=== PATIENT | male | born 1965 | race Caucasian/White ===

== ENCOUNTER 2017-01-23 16:00 | Day surgery (SDC) | payer OTHER ==
[2017-01-22 15:49] VITALS: BMI 24.2
[~2017-01-23] VITALS: Ht 167.6 cm; Wt 67.0 kg
[2017-01-23] VITALS (16 sets, daily range): BP systolic 115–140; BP diastolic 65–81; PULSE 70–98; RESP 11–22; Ht 167.6 cm; Wt 67.0 kg
--- NOTE | 2017-01-23 16:39 | RADRPT ---
PROCEDURE: XR Chest. CLINICAL INDICATION: Preoperative . TECHNIQUE: Single frontal chest x-ray. COMPARISON: None. FINDINGS: The lungs are clear of acute infiltrates, edema, effusions, or masses.. The cardiomediastinal silho uette is unremarkable. The osseous structures are intact. IMPRESSION: No acute cardiopulmonary disease. RPTAT: GG .Mendez Mei MD, MD Date Time Electronically viewed and signed by .Mendez Mei MD, on 01/23/2017 16:38 .L/
--- NOTE | 2017-01-23 16:54 | HPN ---
Date/Time of Note Date/Time of Note DATE: 01/23/17 TIME: 16:54 Interval H&P Admission Note Pt. seen H&P reviewed: No system changes ZAHRA HERNANDEZ Jan 23, 2017 16:54
[2017-01-23] MEDS ORDERED: LIDOCAINE 1% (STERILE-PAK) 30 ML INJ ONE (17:23)
[2017-01-23] MEDS ORDERED: POLYMYXIN/BACITRACIN 1L IRRIG ONE (17:23)
[2017-01-23] MEDS ORDERED: BUPIVACAINE 0.25% (MPF) 10 ML 10 ML VIAL ONE (17:23)
[2017-01-23] MEDS ORDERED: PHENYLephrine (100 MCG/ML) 5ML SYG ONE (17:58)
[2017-01-23] MEDS ORDERED: FENTAnyl 50 MCG/ML VIAL ONE (18:01)
[2017-01-23] MEDS ORDERED: LIDOCAINE 2% (SDV) 5 ML INJ ONE (18:22)
[2017-01-23] MEDS ORDERED: ONDANSETRON 4 MG INJ ONE (18:23)
[2017-01-23] MEDS ORDERED: PROPOFOL 20 ML ONE (18:23)
[2017-01-23] MEDS ORDERED: DEXAMETHASONE 4 MG/ML 1 ML INJ ONE (18:23)
--- NOTE | 2017-01-23 19:13 | OPPN ---
Date/Time of Note Date/Time of Note DATE: 01/23/17 TIME: 19:13 Operative Report Preoperative Diagnosis left hand and ring finger Dupuytren's contracture Postoperative Diagnosis left hand and ring finger Dupuytren's contracture Operation/Procedure Performed open fasciectomy left hand and ring finger Dupuytren's contracture Surgeon see signature line offset press assistant none Anesthesia: general Estimated blood loss: 0 - 10 ml's Transfusion Required none Specimen none Grafts/Implants none Complications none ZAHRA HERNANDEZ Jan 23, 2017 19:13
[2017-01-23] MEDS ORDERED: HYDROCODONE/APAP (5/325) TAB PO PRN (20:00)
[2017-01-23] MEDS ORDERED: HYDROmorphONE 1 MG/ML SYG IV STA (20:04)
[2017-01-23] MEDS ORDERED: HYDROmorphONE (0.2 MG/ML) 10ML SYG IV ONE (20:06)
[2017-01-23] MEDS ORDERED: METOCLOPRAMIDE 10 MG INJ ONE (20:06)
[2017-01-23] MEDS ORDERED: METOCLOPRAMIDE 10 MG INJ IV ONE (20:30)
--- NOTE | 2017-01-24 15:08 | OPR ---
DATE OF OPERATION: 01/23/2017 SURGEON: Maurice Hill MD ANESTHESIA: General. PREOPERATIVE DIAGNOSES: 1. Left hand Dupuytren's contracture. 2. 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 POSTOPERATIVE DIAGNOSES: 1. Left hand Dupuytren's contracture. 2. 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 PROCEDURE.: 1. Left hand open fasciectomy for Dupuytren's contracture. 2. Left ring finger open fasciectomy for excision of spiral cord for Dupuytren's contracture. OPERATIVE FINDINGS AT SURGERY: Pretendinous and spiral cord at the left hand and ring finger. INDICATION: This is a 51-year-old male with longstanding left hand Dupuytren's contracture. Worsening with time and he was flexing to 40 degrees at the MP joint and 70 degrees at the PIPJ, with inability to extend beyond that point. The patient elected to proceed with surgical intervention. Understanding the risks, benefits. OPERATIVE PROCEDURE: The patient was seen up in the preoperative area. All further questions were answered. Again, he gave informed consent understanding risks, benefits. He was taken to the operative suite and paced in supine position. He was placed under general anesthesia and tourniquet placed on left upper extremity. Ancef 2 g IV given and left upper extremity was prepped with ChloraPrep stick and draped usual sterile fashion. Esmarch bandage was used to exsanguinate the extremity and tourniquet inflated to 250 mmHg. A Cris zigzag-type incision longitudinally along the palm and into the ring finger, beyond the PIPJ was utilized with sharp dissection carried down through skin and subcutaneous tissue. The pretendinous cord was found proximally and the deep dermal layer was carefully peeled off of the underlying pretendinous cord. The cord was isolated circumferentially to the level of the MP joint. The cord was excised and the MP joint. I was able to hyperextend. The PIPJ had persistent flexion deformity and the spiral cord was identified and the neurovascular bundles were identified and protected. The spinal cord was also excised, and the PIPJ was fully extended. Tourniquet was deflated after 39 minutes, and the skin flaps were pink, warm, well-perfused, as was the digit into full extension. The wound was copiously irrigated. Skin closed with #5-0 nylon. Xeroform placed over the wounds followed by sterile gauze, Webril, and a short-arm volar splint to the finger tips, with the fingers in extension. The fingers remained pink, warm, well-perfused with the splint placed. The patient was awakened from anesthesia, taken to postoperative suite in stable condition and tolerated the procedure well without complication. Specimens none. Estimated blood loss 5 mL. Sponge and needle counts correct. Tourniquet time 39 minutes. Condition on discharge is stable. Dictated By: Maurice Hill MD /[email or web address] /Document#: [id number]
== END 2017-01-23 21:10 | disposition home or self-care (01) ==
LOC: SDS 16:00
PROVIDERS: ATTEND Orthopaedic Surgery Hand Surgery
DX: M72.0 Palmar fascial fibromatosis [Dupuytren] (principal); M24.542 Contracture, left hand
CPT/HCPCS: 26121; 71010; 88304; J1100; J1170; J2370; J2405; J2765; J3010; Z7512; Z7610

== ENCOUNTER 2017-03-01 05:40 | Day surgery (SDC) | payer OTHER ==
[~2017-03-01] VITALS: Ht 167.6 cm; Wt 61.7 kg
[2017-03-01] VITALS (13 sets, daily range): BP systolic 117–138; BP diastolic 60–89; PULSE 68–99; RESP 7–18; Ht 167.6 cm; Wt 61.7 kg
[2017-03-01] MEDS ORDERED: SOD CHLORIDE 0.9% 1,000 ML IV SCH (06:00)
[2017-03-01] MEDS ORDERED: CEFAZOLIN 2 GM/50 ML (PMX) 50 ML IVPB SCH (06:00)
[2017-03-01] MEDS ORDERED: POLYMYXIN/BACITRACIN 1L IRRIG ONE (07:44)
[2017-03-01] MEDS ORDERED: BUPIVACAINE 0.25% (MPF) 30 ML INJ ONE (07:44)
[2017-03-01] MEDS ORDERED: FENTAnyl 50 MCG/ML VIAL ONE (08:14)
[2017-03-01] MEDS ORDERED: MIDAZOLAM 1 MG/ML 2 ML INJ ONE (08:14)
[2017-03-01] MEDS ORDERED: LIDOCAINE 2% (SDV) 5 ML INJ ONE (08:23)
[2017-03-01] MEDS ORDERED: DEXAMETHASONE 4 MG/ML 1 ML INJ ONE (08:23)
[2017-03-01] MEDS ORDERED: CEFAZOLIN 1 GM INJ ONE (08:23)
[2017-03-01] MEDS ORDERED: SUCCINYLCHOLINE CHLORIDE 100 MG/5 ML SYG IV ONE (08:23)
[2017-03-01] MEDS ORDERED: PROPOFOL 20 ML ONE (08:23)
[2017-03-01] MEDS ORDERED: ONDANSETRON 4 MG INJ ONE (08:23)
[2017-03-01] MEDS ORDERED: FAMOTIDINE 20 MG INJ ONE (08:23)
[2017-03-01] MEDS ORDERED: ROCURONIUM 50 MG INJ ONE (08:23)
[2017-03-01] MEDS ORDERED: PHENYLephrine (100 MCG/ML) 5ML SYG ONE (08:24)
[2017-03-01] MEDS ORDERED: PROCHLORPERAZINE 10 MG INJ IV PRN (08:30)
[2017-03-01] MEDS ORDERED: FENTAnyl 50 MCG/ML VIAL IV PRN (08:30)
[2017-03-01] MEDS ORDERED: ONDANSETRON 4 MG INJ IV PRN (08:30)
[2017-03-01] MEDS ORDERED: MEPERIDINE 25 MG INJ IV PRN (08:30)
[2017-03-01] MEDS ORDERED: OXYCODONE/ACETAMINOPHEN (5/325) TAB PO PRN ×2 (08:30)
[2017-03-01] MEDS ORDERED: DIPHENHYDRAMINE 50 MG INJ IV PRN (08:30)
[2017-03-01] MEDS ORDERED: HYDROmorphONE (0.2 MG/ML) 10ML SYG IV PRN (08:30)
[2017-03-01] MEDS ORDERED: HYDROmorphONE 2 MG/ML SYG ONE (08:50)
[2017-03-01] MEDS ORDERED: GLYCOPYRROLATE 0.4 MG INJ ONE (09:29)
[2017-03-01] MEDS ORDERED: NEOSTIGMINE 3 MG/3 ML SYRINGE ONE (09:29)
[2017-03-01] MEDS ORDERED: KETOROLAC 30 MG INJ ONE (09:39)
--- NOTE | 2017-03-01 09:42 | OPR ---
Date/Time of Note Date/Time of Note DATE: 03/01/17 TIME: 09:34 Operative Report Procedure Date: Mar 01, 2017 Preoperative Diagnosis recurrent bilateral inguinal hernias Postoperative Diagnosis recurrent bilateral inguinal hernias infected left groin mesh Operation/Procedure Performed 1. laparoscopic bilateral inguinal hernias 2. bard's 15 x 15 cm mesh implantation in the abdomen 3. incision and drainage of left groin abscess 4. wound culture of left groin abscess 5. removal of left groin foreign body 6. therapeutic injection of subcutaneous local anesthesia Surgeon see signature line Pest Control Applicator none Anesthesia Type: general Estimated Blood Loss: 0 - 10 ml's Transfusion none Specimen left groin wound culture left groin foreign body possible old mesh Grafts/Implants none Complications none Indications This is a 51-year-old male who has had prior inguinal hernia repair. He requests surgical repair due to recurrence. Patient taken to the OR for laparoscopic bilateral inguinal hernia repair. Risks alternatives benefits and percent were discussed the patient. Patient's best understanding consents to the operation. Procedure Description Patient taken to the OR prepped and draped in usual sterile fashion. Surgical timeout was performed. IV antibiotics were given. Infraumbilical transverse incision is made with a 15 blade. Dissection cautery was carried onto the fascia and which was grasped with [place]'s. The fascia was divided with curved Vanegas scissors. 0 Vicryl U stitch was placed into the fascia. Blueness on trocar is introduced pneumoperitoneum is established. Left periumbilical 5 mm ports were placed 2. Right periumbilical 5 ports are placed 2. Upon initial inspection there is 2 small bilateral inguinal hernias. Peritoneal flaps are created on the left side this is taken down to visualize the inferior epigastric artery and this is followed down to allow visualization of the pubic tubercle. The cord structures identified and inguinal hernias laparoscopically reduced. Mesh was implanted with 15 x 15 cm Bard soft mesh which is secured in place by first securing the medial portion of the mesh with secure strap. Steri -Strips were placed additionally along the superior and anterior abdominal wall to secure the mesh placement. The peritoneal flap was then re-tacked to the anterior abdominal wall to cover the mesh with secure strap. There is good hemostasis. Attention was then paid to the right side. Peritoneal flaps were created with lap scopic harmonic alessandra. The flap was taken down from the inferior epigastric and blunt dissection allowed visualization of the pubic tubercle. A small indirect hernia was identified and this was reduced laparoscopically. Large 15 x 15 cm mesh was cut to fashion with with 2 straps. This was placed around the cord structures to allow the current recreation of the inguinal ring. The mesh was secured in place by initial tacking to the pubic tubercle medially and superiorly along the anterior abdominal wall. There is good hemostasis. The peritoneal flap was then replaced back into place with secure strap. Additional finding during the operation was that there was still a groin bulge in the left side more superior and lateral to the incision site. Small incision was made is an open incision in this area was explored. There was gross pus pocket there. This area was irrigated thoroughly after a wound culture was sent. Additionally foreign body material which looked like old mesh was also excised in part however some of the mesh was completely incorporated to tissues and the decision was made that further extraction of additional old mesh would cause more destruction of the inherent tissues and cause more bleeding. Is much foreign body and old mesh was resected as possible. The wound was then closed with skin karyna. Therapeutic subcutaneous dressing was applied to all incision sites after all incisions were closed with skin karyna. Dry dressings were applied. Basia FISH Mar 01, 2017 09:42
[2017-03-01] MEDS ORDERED: HYDROCODONE/APAP (5/325) TAB PO ONE (10:00)
== END 2017-03-01 11:48 | disposition home or self-care (01) ==
LOC: SDS 05:40
PROVIDERS: ATTEND Surgery
DX: K40.20 Bilateral inguinal hernia, without obstruction or gangrene, not specified as recurrent (principal); F17.210 Nicotine dependence, cigarettes, uncomplicated
CPT/HCPCS: 49650; 87070; 87075; 88302; J0690; J1100; J1170; J1885; J2250; J2370; J2405; J2710; J3010; Z7512; Z7610

== ENCOUNTER 2017-07-19 10:57 | Day surgery (SDC) | END 2017-07-19 17:55 | disposition home or self-care (01) ==